=== PATIENT | female | born 1980 | race Caucasian/White ===

== ENCOUNTER 2020-06-05 07:03 | Day surgery (SDC) | payer OTHER ==
[2020-06-05] MEDS ORDERED: IRON SUCROSE INJECTION 200 MG in SODIUM CHLORIDE 100 ML IVPB ONE (10:00)
[2020-06-05 17:34] VITALS: PULSE 79; TEMP 98.7
[2020-06-05 17:41] VITALS: BP 102/59
== END 2020-06-05 16:15 | disposition home or self-care (01) ==
LOC: JONCNONCHE 07:03
PROVIDERS: ATTEND Internal Medicine Hematology & Oncology
PROC: 3E033GC Introduction of Other Therapeutic Substance into Peripheral Vein, Percutaneous Approach (ICD-10-PCS; principal; 2020-06-05)
DX: D50.9 Iron deficiency anemia, unspecified (principal)
CPT/HCPCS: 96365; J1756

== ENCOUNTER 2020-06-12 07:19 | Day surgery (SDC) | payer OTHER ==
[2020-06-12] MEDS ORDERED: IRON SUCROSE INJECTION 200 MG in SODIUM CHLORIDE 100 ML IVPB ONE (10:00)
[2020-06-12 15:14] VITALS: TEMP 98.5
[2020-06-12 15:15] VITALS: BP 100/57; PULSE 73
== END 2020-06-12 13:10 | disposition home or self-care (01) ==
LOC: JONCNONCHE 07:19
PROVIDERS: ATTEND Internal Medicine Hematology & Oncology
PROC: 3E033GC Introduction of Other Therapeutic Substance into Peripheral Vein, Percutaneous Approach (ICD-10-PCS; principal; 2020-06-12)
DX: D50.9 Iron deficiency anemia, unspecified (principal)
CPT/HCPCS: 96365; J1756

== ENCOUNTER 2020-06-26 06:58 | Day surgery (SDC) | payer OTHER ==
[2020-06-26] MEDS ORDERED: IRON SUCROSE INJECTION 200 MG in SODIUM CHLORIDE 100 ML IVPB ONE (10:00)
[2020-06-26 16:55] VITALS: TEMP 98.3
[2020-06-26 16:56] VITALS: BP 74/51; PULSE 60
== END 2020-06-26 16:15 | disposition home or self-care (01) ==
LOC: JONCNONCHE 06:58
PROVIDERS: ATTEND Internal Medicine Hematology & Oncology
PROC: 3E033GC Introduction of Other Therapeutic Substance into Peripheral Vein, Percutaneous Approach (ICD-10-PCS; principal; 2020-06-26)
DX: D50.9 Iron deficiency anemia, unspecified (principal)
CPT/HCPCS: 96365; J1756

== ENCOUNTER 2020-07-02 17:25 | Day surgery (SDC) | payer OTHER ==
[~2020-07-02 17:25] MED LIST: IRON SUCROSE INJECTION 200 MG in SODIUM CHLORIDE 100 ML IVPB ONE
[2020-07-02 17:28] VITALS: BP 110/64; PULSE 63; TEMP 98.3
== END 2020-07-02 17:31 | disposition home or self-care (01) ==
LOC: JONCNONCHE 17:25
PROVIDERS: ATTEND Internal Medicine Hematology & Oncology
PROC: 3E033GC Introduction of Other Therapeutic Substance into Peripheral Vein, Percutaneous Approach (ICD-10-PCS; principal; 2020-07-02)
DX: D50.9 Iron deficiency anemia, unspecified (principal)
CPT/HCPCS: 96365; J1756

== ENCOUNTER 2020-11-06 07:47 | Day surgery (SDC) | payer OTHER ==
[2020-11-06] MEDS ORDERED: IRON SUCROSE INJECTION 200 MG in SODIUM CHLORIDE 100 ML IVPB ONE (10:00)
[2020-11-06 17:25] VITALS: TEMP 98.6
[2020-11-06 17:26] VITALS: BP 97/53; PULSE 68
== END 2020-11-06 16:00 | disposition home or self-care (01) ==
LOC: JONCNONCHE 07:47
PROVIDERS: ATTEND Internal Medicine Hematology & Oncology
PROC: 3E033GC Introduction of Other Therapeutic Substance into Peripheral Vein, Percutaneous Approach (ICD-10-PCS; principal; 2020-11-06)
DX: D50.9 Iron deficiency anemia, unspecified (principal)
CPT/HCPCS: 96365; J1756

== ENCOUNTER 2020-11-19 07:30 | Day surgery (SDC) | payer OTHER ==
[2020-11-19] MEDS ORDERED: IRON SUCROSE INJECTION 200 MG in SODIUM CHLORIDE 100 ML IVPB ONE ×2 (10:30→12:30)
[2020-11-19 16:56] VITALS: BP 102/67; PULSE 68; TEMP 98.4
== END 2020-11-19 16:55 | disposition home or self-care (01) ==
LOC: JONCNONCHE 07:30
PROVIDERS: ATTEND Internal Medicine Hematology & Oncology
PROC: 3E033GC Introduction of Other Therapeutic Substance into Peripheral Vein, Percutaneous Approach (ICD-10-PCS; principal; 2020-11-19)
DX: D50.9 Iron deficiency anemia, unspecified (principal)
CPT/HCPCS: 96365; J1756

== ENCOUNTER 2020-11-26 07:00 | Day surgery (SDC) | payer OTHER ==
[2020-11-26] MEDS ORDERED: IRON SUCROSE INJECTION 200 MG in SODIUM CHLORIDE 100 ML IVPB ONE (10:15)
[2020-11-26 15:13] VITALS: BP 106/70; PULSE 70; TEMP 99.2
== END 2020-11-26 11:55 | disposition home or self-care (01) ==
LOC: JONCNONCHE 07:00
PROVIDERS: ATTEND Internal Medicine Hematology & Oncology
PROC: 3E033GC Introduction of Other Therapeutic Substance into Peripheral Vein, Percutaneous Approach (ICD-10-PCS; principal; 2020-11-26)
DX: D50.9 Iron deficiency anemia, unspecified (principal)
CPT/HCPCS: 96365; J1756

== ENCOUNTER 2020-12-03 19:32 | Emergency (ER) | payer OTHER ==
[2020-12-03 21:10] VITALS: BP 109/65; PULSE 74; TEMP 99.1; BMI 24.2
[2020-12-03 21:11] LABS: HCG,QUALITATIVE URINE Negative
[2020-12-03 21:20] LABS: EPITHELIAL CELLS FEW /hpf
[2020-12-03 21:21] LABS: ALBUMIN 4.3 g/dl (3.4-5.0); BILIRUBIN,TOTAL 0.6 mg/dl (0.2-1); CALCIUM 9.1 mg/dl (8.5-10); CREATININE 0.5 mg/dl (0.55-1.3)
[2020-12-03 22:01] LABS: BASO % 0.5 % (0-2.0); EOS % 3.8 % (0-4.5); HEMATOCRIT 35.9 % (32.4-45.2); HEMOGLOBIN 11.8 GM/dL (10.7-15.3); LYMPH % 32.9 % (8-40); MCH 27.4 pg (25.7-33.7); MCHC 32.9 g/dl (32.0-36.0); MEAN CELL VOLUME 83.2 fl (80-96); MEAN PLT VOLUME 8.3 fl (7.5-11.1); MONO % 5.4 % (3.8-10.2); NEUT % 57.4 % (42.8-82.8); PLATELET COUNT 216 10^3/uL (134-434); RBC 4.32 M/mm3 (3.60-5.2); RDW 20.3 % (11.6-15.6); WHITE BLOOD COUNT 5.1 K/mm3 (4.0-10.0)
[2020-12-03] MEDS ORDERED: ACETAMINOPHEN 1000 MG/100 ML VIAL IVPB ONE (22:22)
[2020-12-03] MEDS ORDERED: CEFTRIAXONE 1 GM in DEXTROSE 5%-WATER - 100 ML IVPB ONE (22:32)
[2020-12-03] MEDS ORDERED: ACETAMINOPHEN INJECTION 100 ML IVPB ONE (22:38)
[2020-12-03] MEDS ORDERED: cefTRIAXone SODIUM 1 GM VIAL ONE (22:44)
== END 2020-12-03 23:44 | disposition home or self-care (01) ==
LOC: FER 19:32
PROC: 3E0333Z Introduction of Anti-inflammatory into Peripheral Vein, Percutaneous Approach (ICD-10-PCS; principal; 2020-12-03)
PROC: 3E03329 Introduction of Other Anti-infective into Peripheral Vein, Percutaneous Approach (ICD-10-PCS; 2020-12-03)
DX: N39.0 Urinary tract infection, site not specified (principal)
CPT/HCPCS: 36415; 74177-TC; 80053; 81003; 81015; 83690; 84703; 85025; 99285-25; J0131; Q9967

== ENCOUNTER 2022-02-04 18:30 | Emergency (ER) | payer OTHER ==
[2022-02-04 18:40] VITALS: BP 129/77; PULSE 93; RESP 18; TEMP 98.4; BMI 24.8
[2022-02-04] MEDS ORDERED: ALBUTEROL SO4 2.5/IPRATROPIUM 0.5 INH SOL 3 ML VIAL.NEB. NEB STA (19:32)
[2022-02-04] MEDS ORDERED: CEFTRIAXONE 1,000 MG in DEXTROSE 5%-WATER - 50 ML IVPB ONE (19:33)
[2022-02-04] MEDS ORDERED: AZITHROMYCIN 500 MG TABLET PO ONE (19:58)
[2022-02-04] MEDS ORDERED: AZITHROMYCIN 250 MG TABLET ONE (20:13)
== END 2022-02-04 20:25 | disposition home or self-care (01) ==
LOC: FER 18:30
PROC: 3E0F7GC Introduction of Other Therapeutic Substance into Respiratory Tract, Via Natural or Artificial Opening (ICD-10-PCS; principal; 2022-02-04)
PROC: 3E03329 Introduction of Other Anti-infective into Peripheral Vein, Percutaneous Approach (ICD-10-PCS; 2022-02-04)
DX: J20.9 Acute bronchitis, unspecified (principal)
CPT/HCPCS: 71045-TC-FY; 99284-25

== ENCOUNTER 2022-06-23 08:50 | Emergency (ER) | payer OTHER ==
[2022-06-23] MEDS ORDERED: METHOCARBAMOL 500 MG TABLET PO ONE (08:58)
[2022-06-23] MEDS ORDERED: LIDOCAINE 5% TOPICAL PATCH TP ONE (08:58)
[2022-06-23] MEDS ORDERED: ACETAMINOPHEN 500 MG TABLET (FP) PO ONE (08:58)
[2022-06-23 09:03] VITALS: BP 132/61; PULSE 83; RESP 20; TEMP 99.3; BMI 25.2
[2022-06-23] MEDS ORDERED: METHOCARBAMOL 500 MG TABLET ONE (09:26)
[2022-06-23] MEDS ORDERED: LIDOCAINE 5% TOPICAL PATCH ONE (09:26)
[2022-06-23] MEDS ORDERED: ACETAMINOPHEN 500 MG TABLET (FP) ONE (09:26)
[2022-06-23] MEDS ORDERED: KETOROLAC TROMETHAMINE 30 MG/1 ML VIAL IM ONE (09:37)
[2022-06-23] MEDS ORDERED: KETOROLAC TROMETHAMINE 30 MG/1 ML VIAL ONE (09:49)
== END 2022-06-23 10:18 | disposition home or self-care (01) ==
LOC: FER 08:50
PROC: 3E0233Z Introduction of Anti-inflammatory into Muscle, Percutaneous Approach (ICD-10-PCS; principal; 2022-06-23)
DX: M25.552 Pain in left hip (principal); M79.675 Pain in left toe(s)
CPT/HCPCS: 84703; 93971-TC; 99284-25

== ENCOUNTER 2024-11-03 14:27 | Day surgery (SDC) | payer OTHER ==
[2024-11-03] MEDS: IRON SUCROSE INJECTION 300 MG in SODIUM CHLORIDE 250 ML IVPB ONE (15:00)
[2024-11-03 16:46] VITALS: PULSE 67; RESP 20; TEMP 98.5
[2024-11-03 17:01] VITALS: BP 104/46
== END 2024-11-03 17:00 | disposition home or self-care (01) ==
LOC: JONCCHEMO 14:27
PROVIDERS: ATTEND Internal Medicine Hematology & Oncology
PROC: 3E033GC Introduction of Other Therapeutic Substance into Peripheral Vein, Percutaneous Approach (ICD-10-PCS; principal; 2024-11-03)
DX: D50.9 Iron deficiency anemia, unspecified (principal)
CPT/HCPCS: 96365; J1756

== ENCOUNTER 2024-11-17 09:08 | Day surgery (SDC) | payer OTHER ==
[2024-11-17] MEDS: IRON SUCROSE INJECTION 300 MG in SODIUM CHLORIDE 250 ML IVPB ONE (08:45)
[2024-11-17 12:33] VITALS: RESP 20; TEMP 97.7
[2024-11-17 12:35] VITALS: BP 99/53; PULSE 77
== END 2024-11-17 11:00 | disposition home or self-care (01) ==
LOC: JONCNONCHE 09:08
PROVIDERS: ATTEND Internal Medicine Hematology & Oncology
PROC: 3E033GC Introduction of Other Therapeutic Substance into Peripheral Vein, Percutaneous Approach (ICD-10-PCS; principal; 2024-11-17)
DX: D50.9 Iron deficiency anemia, unspecified (principal)
CPT/HCPCS: 96365; J1756